=== PATIENT | female | born 1965 | race Caucasian/White ===

== ENCOUNTER 2017-02-23 20:46 | Emergency (ER) | payer OTHER ==
[~2017-02-23] VITALS: Ht 154.9 cm; Wt 55.8 kg
[~2017-02-23 20:46] MED LIST: ATOR10TA PO; PRED20TA PO
[2017-02-23] MEDS: HYDROCODONE/APAP 10-325 MG TABLET PO ONE (21:47)
--- NOTE | 2017-02-23 21:51 | NUR ---
Pt ambulated to room with steady gait. Pt c/o "bump" back of head causing numbness (described as pins and needles) to radiate down neck and/or up and towards her forehead. Pt describes throbbing pain to head, chills and hot flashes. Pt seen by MD. Pt medicated for discomfort. Will monitor for effects of medication. Pt to CT via tomas
[2017-02-23] MEDS ORDERED: HYDROCODONE/APAP 10-325 MG TABLET ONE (21:56)
--- NOTE | 2017-02-23 22:06 | NUR ---
Pt returned from CT, resting in position of comfort for self
[2017-02-23] MEDS: PROMETHAZINE HCL 25 MG/1 ML VIAL IM ONE (22:27)
[2017-02-23] MEDS: HYDROMORPHONE 1 MG/1 ML DISP.SYRIN IM ONE (22:27)
--- NOTE | 2017-02-23 22:28 | NUR ---
Pt conts to c/o severe "burning" pain and requesting an injection. MD notified and pt medicated. Will monitor for effects of medication. Pt resting in position of comfort for self. Family at bedside.`
[2017-02-23] MEDS ORDERED: PROMETHAZINE HCL 25 MG/1 ML VIAL ONE (22:29)
[2017-02-23] MEDS ORDERED: HYDROMORPHONE 1 MG/1 ML DISP.SYRIN ONE (22:29)
--- NOTE | 2017-02-23 23:20 | NUR ---
Pt sts pain improved. Pt stable for discharge per MD. Pt given ACI. Pt verbalized understanding of dc instructions. Pt wheeled out of er via w/c with ride home.
[2017-02-23 23:30] VITALS: BP 96/56
== END 2017-02-23 23:20 | disposition home or self-care (01) ==
LOC: ER 20:48
DX: I88.9 Nonspecific lymphadenitis, unspecified (principal); F17.200 Nicotine dependence, unspecified, uncomplicated; E78.00 Pure hypercholesterolemia, unspecified
CPT/HCPCS: 70450; 72125; A4663; J1170; J2550

== ENCOUNTER 2017-08-31 12:06 | Emergency (ER) | payer OTHER ==
[~2017-08-31] VITALS: Ht 154.9 cm; Wt 56.7 kg
--- NOTE | 2017-08-31 12:13 | NUR ---
DR RIVERO AT THE BEDSIDE FOR EVAL AND EXAM.
[2017-08-31] MEDS ORDERED: DICYCLOMINE HCL 10 MG/5 ML UDC LIQ PO ONE (12:30)
[2017-08-31] MEDS ORDERED: MAG HYDROX/AL HYDROX/SIMETH 30 ML LIQUID UDC PO ONE (12:30)
[2017-08-31] MEDS ORDERED: ASPIRIN 325 MG TABLET PO ONE (12:30)
[2017-08-31] MEDS ORDERED: IV NORMAL SALINE 500 ML BAG IV ONE (12:30)
[2017-08-31 12:45] LABS: BASOPHILS % (AUTO) 0.5 % (0.0-2.0); EOSINOPHILS % (AUTO) 0.3 % (0.0-7.0); HEMATOCRIT 39.2 % (31.2-41.9); HEMOGLOBIN 13.5 g/dL (10.9-14.3); LYMPHOCYTES % (AUTO) 22.4 % (20.5-51.5); MEAN CORPUSCULAR HGB CONC 34 g/dL (32.3-35.6); MEAN CORPUSCULAR VOLUME 92.9 fL (75.5-95.3); MONOCYTES # (AUTO) 0.5 K/uL (2.0-10.0); MONOCYTES % (AUTO) 6.1 % (0.0-11.0); NEUTROPHILS # (AUTO) 6.2 K/uL (1.8-8.9); NEUTROPHILS % (AUTO) 70.7 % (38.5-71.5); PLATELET COUNT (AUTO) 217 K/uL (179-408); RED BLOOD CELL COUNT(AUTO) 4.22 MIL/uL (3.63-4.92); WHITE BLOOD COUNT (AUTO) 8.8 K/uL (3.8-11.8)
[2017-08-31 12:50] LABS: CARBON DIOXIDE 22 mmol/L (21-32); CHLORIDE 109 mmol/L (98-107); CREATININE 0.7 mg/dL (0.6-1.3); GLUCOSE 104 mg/dL (74-106); POTASSIUM 3.6 mmol/L (3.5-5.1); UREA NITROGEN, BLOOD 14 mg/dL (7-18)
[2017-08-31] MEDS ORDERED: DICYCLOMINE HCL 10 MG/5 ML UDC LIQ ONE (12:52)
[2017-08-31] MEDS ORDERED: ASPIRIN 325 MG TABLET ONE (12:52)
[2017-08-31] MEDS ORDERED: MAG HYDROX/AL HYDROX/SIMETH 30 ML LIQUID UDC ONE (12:52)
[2017-08-31 13:03] LABS: ALANINE AMINOTRANSFERASE 21 U/L (14-59); ALKALINE PHOSPHATASE 79 U/L (50-136); ASPARTATE AMINOTRANSFERASE 12 U/L (15-37); BILIRUBIN,DIRECT < 0.1 mg/dL (0.0-0.2); BILIRUBIN,TOTAL 0.2 mg/dL (0.2-1.0); TOTAL PROTEIN, SERUM 6.9 g/dL (6.4-8.2)
[2017-08-31] MEDS ORDERED: ONDANSETRON IV *ER 4 MG/2 ML VIAL IV ONE (13:15)
[2017-08-31] MEDS ORDERED: PANTOPRAZOLE SODIUM 40 MG VIAL IV ONE (13:15)
--- NOTE | 2017-08-31 13:26 | NUR ---
IV removed. Catheter intact and site benign. Pressure and 4x4 gauze applied to site. No bleeding noted.
[2017-08-31] MEDS ORDERED: PANTOPRAZOLE SODIUM 40 MG VIAL ONE (13:27)
[2017-08-31] MEDS ORDERED: ONDANSETRON 4 MG/2 ML VIAL ONE (13:27)
[2017-08-31 13:32] VITALS: BP 122/77
--- NOTE | 2017-08-31 14:00 | NUR ---
Patient discharged to home in stable conditon. Written and verbal after care instructions given. Patient verbalizes understanding of instructions.
== END 2017-08-31 14:13 | disposition home or self-care (01) ==
LOC: ER 12:06
DX: R07.89 Other chest pain (principal); E78.00 Pure hypercholesterolemia, unspecified; F17.200 Nicotine dependence, unspecified, uncomplicated
CPT/HCPCS: 36415; 70030-TC; 71010; 85025; 85730; 93005; A4663; C9113; J2405

== ENCOUNTER 2018-05-01 19:10 | Inpatient (IN) | payer MEDICAID, OTHER ==
[~2018-05-01] VITALS: Ht 154.9 cm; Wt 56.2 kg
[~2018-05-01 19:10] MED LIST changes: -PRED20TA PO
--- NOTE | 2018-05-01 19:26 | NUR ---
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 Pt [place] the [place] and all of a sudden felt a pressure in her chest that radiates to her neck, felt short of breath, and nauseous. Pt states she has been having intermittent chest pain, nausea, lightheadedness, and palpitations for 2 weeks now and has not been eating due to not feeling well. SA02 99% RA. NSR on monitor. AAOX4. Speech clear. Respirations even + unlabored.
[2018-05-01] MEDS ORDERED: ASPIRIN 325 MG TABLET PO ONE (19:45)
[2018-05-01] MEDS ORDERED: NITROGLYCERIN 0.4 MG/TAB BOTTLE SL ONE ×2 (19:45→19:47)
[2018-05-01] MEDS ORDERED: PANTOPRAZOLE SODIUM 40 MG VIAL IV ONE (19:45)
[2018-05-01] MEDS ORDERED: ASPIRIN 325 MG TABLET ONE (19:47)
[2018-05-01] MEDS ORDERED: PANTOPRAZOLE SODIUM 40 MG VIAL ONE (19:47)
[2018-05-01 19:48] LABS: BASOPHILS % (AUTO) 0.4 % (0.0-2.0); EOSINOPHILS % (AUTO) 0.2 % (0.0-7.0); HEMATOCRIT 38.9 % (31.2-41.9); HEMOGLOBIN 13.4 g/dL (10.9-14.3); LYMPHOCYTES # (AUTO) 2.5 K/uL (20.0-40.0); LYMPHOCYTES % (AUTO) 26.5 % (20.5-51.5); MEAN CORPUSCULAR HEMOGLOBIN 32.4 uug (24.7-32.8); MEAN CORPUSCULAR HGB CONC 35 g/dL (32.3-35.6); MEAN CORPUSCULAR VOLUME 93.6 fL (75.5-95.3); MONOCYTES # (AUTO) 0.6 K/uL (2.0-10.0); MONOCYTES % (AUTO) 6.1 % (0.0-11.0); NEUTROPHILS # (AUTO) 6.3 K/uL (1.8-8.9); NEUTROPHILS % (AUTO) 66.8 % (38.5-71.5); PLATELET COUNT (AUTO) 235 K/uL (179-408); RED BLOOD CELL COUNT(AUTO) 4.15 MIL/uL (3.63-4.92); WHITE BLOOD COUNT (AUTO) 9.4 K/uL (3.8-11.8)
[2018-05-01 19:56] LABS: CREATININE 0.7 mg/dL (0.6-1.3); POTASSIUM 3.8 mmol/L (3.5-5.1)
[2018-05-01 20:09] LABS: BILIRUBIN,DIRECT 0.1 mg/dL (0.0-0.2); BILIRUBIN,TOTAL 0.4 mg/dL (0.2-1.0); TOTAL PROTEIN, SERUM 7.3 g/dL (6.4-8.2)
[2018-05-01] MEDS ORDERED: ONDANSETRON 4 MG/2 ML VIAL ONE (20:28)
[2018-05-01] MEDS ORDERED: MORPHINE SULFATE 2 MG/1 ML DISP.SYRIN ONE ×2 (20:28→21:15)
[2018-05-01] MEDS ORDERED: MORPHINE SULFATE 2 MG/1 ML DISP.SYRIN IV ONE ×2 (20:30→21:15)
[2018-05-01] MEDS ORDERED: ONDANSETRON 4 MG/2 ML VIAL IV ONE (20:30)
--- NOTE | 2018-05-01 20:51 | NUR ---
Spoke with Casey pinzon [place] regarding pt status and pending call back for information regarding pt admission.
[2018-05-01] MEDS ORDERED: MAGNESIUM HYDROXIDE 30 ML LIQUID UDC PO PRN (21:15)
[2018-05-01] MEDS ORDERED: MORPHINE SULFATE 2 MG/1 ML DISP.SYRIN IV PRN (21:15)
[2018-05-01] MEDS ORDERED: ONDANSETRON 4 MG/2 ML VIAL IV PRN (21:15)
[2018-05-01] MEDS ORDERED: ACETAMINOPHEN 325 MG TABLET PO PRN (21:15)
[2018-05-01] MEDS ORDERED: NITROGLYCERIN 0.4 MG/TAB BOTTLE SL PRN (21:15)
--- NOTE | 2018-05-01 21:15 | NUR ---
Pt. admitted to Telemetry , under care of Dr. Chente Cárdenas. Diagnosis: Chest Pain Belongs List completed.
--- NOTE | 2018-05-01 22:26 | NUR ---
Report given to Kenny PORTER.
[2018-05-01 23:00] VITALS: BP 123/69
--- NOTE | 2018-05-01 23:00 | NUR ---
RECEIVED PT TO TELE FLOOR. A&OX4. NO SKIN ISSUES NOTED. ORIENTED PATIENT TO UNIT AND USE OF CALL LIGHT. PATIENT IS COMFORTABLE AND PAIN IS 3/10 AT THE MOMENT. REVIEWING MEDICATIONS AND ORDERS INPUT BY DR BOO WITH PATIENT RIGHT NOW.
[2018-05-01] MEDS ORDERED: MELATONIN 3 MG TABLET PO PRN ×2 (23:15→23:30)
[2018-05-02] VITALS: BP 106/66
[2018-05-02] MEDS: diphenhydrAMINE 50 MG/1 ML VIAL IV PRN ×2 (00:54→12:22)
[2018-05-02 04:00] VITALS: BP 108/59
[2018-05-02] MEDS: HYDROCODONE/APAP 5-325MG TABLET PO PRN ×2 (05:29→16:02)
[2018-05-02 06:07] LABS: BASOPHILS % (AUTO) 0.3 % (0.0-2.0); EOSINOPHILS % (AUTO) 0.4 % (0.0-7.0); HEMATOCRIT 37.8 % (31.2-41.9); LYMPHOCYTES # (AUTO) 2.3 K/uL (20.0-40.0); LYMPHOCYTES % (AUTO) 27.9 % (20.5-51.5); MEAN CORPUSCULAR HGB CONC 34 g/dL (32.3-35.6); MEAN CORPUSCULAR VOLUME 93.2 fL (75.5-95.3); MONOCYTES # (AUTO) 0.6 K/uL (2.0-10.0); MONOCYTES % (AUTO) 7.1 % (0.0-11.0); NEUTROPHILS # (AUTO) 5.3 K/uL (1.8-8.9); NEUTROPHILS % (AUTO) 64.3 % (38.5-71.5); PLATELET COUNT (AUTO) 238 K/uL (179-408); RED BLOOD CELL COUNT(AUTO) 4.06 MIL/uL (3.63-4.92); WHITE BLOOD COUNT (AUTO) 8.3 K/uL (3.8-11.8)
[2018-05-02 06:18] LABS: THYROID STIMULATING HORMONE 1.012 mIU/mL (0.358-3.740)
[2018-05-02 06:29] LABS: CREATININE 0.8 mg/dL (0.6-1.3); POTASSIUM 4.2 mmol/L (3.5-5.1)
--- NOTE | 2018-05-02 06:30 | NUR ---
EKG BEING DONE AT BEDSIDE. PER MD BUI PT WILL HAVE A CARDIAC CT. CHARGE NURSE AWARE. PATIENT PLACED ON NPO DIET THIS MORNING.
[2018-05-02 08:00] VITALS: BP 105/56
[2018-05-02] MEDS ORDERED: ASPIRIN 81 MG TAB.CHEW PO SCH (09:00)
[2018-05-02 11:42] VITALS: BP 107/64
[2018-05-02] MEDS ORDERED: SIMV40TA5 PO (13:40)
[2018-05-02] MEDS ORDERED: ASPI81TA31 PO (13:40)
[2018-05-02 15:42] VITALS: BP 105/59
--- NOTE | 2018-05-02 16:52 | NUR ---
Telephone report given to RN. Shari Dobbs. All systems cover, all questions answer, unit phone number also provided for further questions. 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 Vitals signs stable. premedicated for c/of headache and nausea. IV line to LFA G20 patent.
[2018-05-02] MEDS ORDERED: SIMVASTATIN 40 MG TABLET PO SCH (21:00)
== END 2018-05-02 17:07 | disposition short-term general hospital (02) | DRG 203 ==
LOC: ER 19:10 → TELE 22:29
DX: M94.0 Chondrocostal junction syndrome [Tietze] (principal); D18.03 Hemangioma of intra-abdominal structures; R07.89 Other chest pain; R63.0 Anorexia; E78.00 Pure hypercholesterolemia, unspecified; Z68.23 Body mass index [BMI] 23.0-23.9, adult; R63.4 Abnormal weight loss; R94.31 Abnormal electrocardiogram [ECG] [EKG]; E78.5 Hyperlipidemia, unspecified
CPT/HCPCS: 36415; 70030-TC; 71045; 83735; 84100; 84443; 85025; 85730; 93005; 93307; A4663; C9113; J1200; J2270; J2405